=== PATIENT | female | born 1995 | race Caucasian/White ===

== ENCOUNTER 2018-11-06 23:11 | Emergency (ER) | payer OTHER ==
[~2018-11-06] VITALS: Ht 157.5 cm; Wt 48.5 kg
[2018-11-06 23:46] VITALS: BP 101/73
--- NOTE | 2018-11-07 00:09 | NUR ---
BIBS W/ C/O LOWER ABD PAIN AND INCREASED VAGINAL DISCHARGES X2 DAYS. NO ODOR . NORMAL COLOR. PT HS AN IUD IN PLACE AND WORRIED IF IT'S MISPLACED. LMP:10/16/18. VSS. WILL CONT TO MONITOR
--- NOTE | 2018-11-07 01:00 | NUR ---
us tech at the bed side
--- NOTE | 2018-11-07 01:45 | NUR ---
Patient does not wish to proceed with medical care recommended by Dr. PLUMMER. Patient given information related to possible complications, up to and including , which could occur as a result of leaving the hospital at this time. Patient verbalizes understanding of risks involved due to leaving against medical advice. Patient has signed AMA form.
[2018-11-07] MEDS ORDERED: IBUPROFEN 600 MG TABLET PO ONE (02:00)
[2018-11-07 02:48] LABS: APPEARANCE,URINE CLEAR (CLEAR); BILIRUBIN,URINE NEGATIVE (NEGATIVE); BLOOD, URINE NEGATIVE Ery/uL (NEGATIVE); COLOR,URINE YELLOW (YELLOW); KETONES,URINE NEGATIVE (NEGATIVE); LEUKOCYTE ESTERASE ,URINE NEGATIVE (NEGATIVE); NITRITE, URINE NEGATIVE (NEGATIVE); PROTEIN,URINE NEGATIVE (NEGATIVE); UGLUCOSE NEGATIVE (NEGATIVE); UROBILINOGEN,URINE 0.2 EU/dL (0.2)
== END 2018-11-07 02:46 | disposition home or self-care (01) ==
LOC: ER 23:14
DX: R10.30 Lower abdominal pain, unspecified (principal); Z88.1 Allergy status to other antibiotic agents; Z97.5 Presence of (intrauterine) contraceptive device
CPT/HCPCS: 76856-TC; 81000-TC; 84703-TC

== ENCOUNTER 2019-05-04 13:54 | Emergency (ER) | payer OTHER ==
[~2019-05-04] VITALS: Ht 157.5 cm; Wt 51.3 kg
[2019-05-04 14:17] VITALS: BP 119/85
[2019-05-04] MEDS: IBUPROFEN 600 MG TABLET PO ONE (14:52)
[2019-05-04] MEDS ORDERED: IBUPROFEN 600 MG TABLET PO ONE (14:53)
== END 2019-05-04 15:09 | disposition home or self-care (01) ==
LOC: ER 13:54
DX: S67.191A Crushing injury of left index finger, initial encounter (principal); S60.022A Contusion of left index finger without damage to nail, initial encounter; W22.8XXA Striking against or struck by other objects, initial encounter; Y93.89 Activity, other specified; Y92.89 Other specified places as the place of occurrence of the external cause; Y99.8 Other external cause status
CPT/HCPCS: 73140-TC

== ENCOUNTER 2022-11-18 10:06 | Emergency (ER) | payer OTHER ==
[~2022-11-18] VITALS: Ht 157.5 cm; Wt 52.2 kg
[2022-11-18] MEDS ORDERED: IV NS 0.9% 1,000 ML BAG IV ONE (10:30)
--- NOTE | 2022-11-18 10:32 | NUR ---
iv established. 20G RAC
--- NOTE | 2022-11-18 10:32 | NUR ---
urine collected and sent to lab
--- NOTE | 2022-11-18 10:33 | NUR ---
blood drawn and sent to lab
--- NOTE | 2022-11-18 11:05 | NUR ---
BS = 103, AWARE
[2022-11-18 11:22] LABS: BASOPHILS % (AUTO) 0.7 % (0.0-2.0); EOSINOPHILS % (AUTO) 2.6 % (0.0-6.0); HEMATOCRIT 42 % (33-45); HEMOGLOBIN 14.2 g/dL (11.5-14.8); LYMPHOCYTES # (AUTO) 2.1 K/uL (0.8-4.8); LYMPHOCYTES % (AUTO) 31.8 % (20.0-44.0); MEAN CORPUSCULAR HGB CONC 34 g/dl (31.0-36.0); MEAN CORPUSCULAR VOLUME 89 fL (82-100); MONOCYTES # (AUTO) 0.8 K/uL (0.1-1.30); NEUTROPHILS # (AUTO) 3.5 K/uL (1.8-8.9); NEUTROPHILS % (AUTO) 52.9 % (43.0-81.0); PLATELET COUNT (AUTO) 194 K/uL (150-450); RED BLOOD CELL COUNT(AUTO) 4.73 MIL/uL (4.0-5.2); WHITE BLOOD COUNT (AUTO) 6.5 K/uL (4.3-11.0)
[2022-11-18 11:25] LABS: BILIRUBIN,URINE NEGATIVE (NEGATIVE); COLOR,URINE YELLOW (YELLOW); LEUKOCYTE ESTERASE ,URINE NEGATIVE (NEGATIVE); NITRITE, URINE NEGATIVE (NEGATIVE); PROTEIN,URINE NEGATIVE (NEGATIVE); UGLUCOSE NEGATIVE (NEGATIVE); UROBILINOGEN,URINE 0.2 EU/dL (0.2)
[2022-11-18 11:36] LABS: CALCIUM, SERUM 9.4 mg/dL (8.5-10.1); CREATININE 0.8 mg/dL (0.6-1.3)
[2022-11-18] MEDS ORDERED: ONDANSETRON HCL/PF 4 MG/2 ML VIAL ONE (11:36)
[2022-11-18] MEDS ORDERED: MORPHINE SULFATE INJ 4 MG/ML DISP.SYRIN ONE (11:36)
[2022-11-18 11:45] LABS: BACTERIA,URINE Rare /HPF (None Seen); SQUAMOUS EPITHELIAL CELL,UR Few /HPF (None Seen); WBC,URINE 0-2 /HPF (0-3)
[2022-11-18 11:47] LABS: ALBUMIN 3.9 g/dL (3.4-5.0); BILIRUBIN,DIRECT 0.1 mg/dL (0.0-0.2); BILIRUBIN,TOTAL 0.2 mg/dL (0.2-1.0); TOTAL PROTEIN, SERUM 7.2 g/dL (6.4-8.2)
[2022-11-18] MEDS ORDERED: MORPHINE SULFATE INJ 2 MG/ML DISP.SYRIN IV ONE (12:00)
[2022-11-18] MEDS ORDERED: ONDANSETRON HCL/PF 4 MG/2 ML VIAL IV ONE (12:00)
--- NOTE | 2022-11-18 13:12 | NUR ---
Patient does not wish to proceed with medical care recommended by Dr. Henri ELDER ). Patient given information related to possible complications, up to and including , which could occur as a result of leaving the hospital at this time. Patient verbalizes understanding of risks involved due to leaving against medical advice. refused to sign AMA form then walk herself out the department.
[2022-11-18 13:15] VITALS: BP 121/81
== END 2022-11-18 13:15 | disposition left against medical advice (07) ==
LOC: ER 10:10
DX: R10.30 Lower abdominal pain, unspecified (principal); Z88.1 Allergy status to other antibiotic agents
CPT/HCPCS: 99285; 96374; 76856; 96361; 96375; 85025; 80048; 83690; 80076; 84703; 81001; 36415; 82962; J2270; J2405; J7030